=== PATIENT | female | born 1960 | race African-American/Black ===

== ENCOUNTER → 2019-06-16 | Outpatient (CLI) | payer OTHER ==
[2014-10-18 23:12] VITALS: BP 148/92
[~2019-06-16] MED LIST: REGADENOSON 0.4 MG/5 ML DISP.SYRIN. IV ONE
--- NOTE | 2019-06-18 12:14 | PCVCIMAG ---
APPROVED REPORT Imaging Protocol: Rest Tc-99m/Stress Tc-99m 1 day Study performed: 06/16/2019 09:19:51 Patient Location: Out-Patient Stress Nurse: Cristina Estrella RN, Elsie Mendoza RN GA Tech:Marina Fatou [facility] [place] Ht: 5 ft 2 in Wt: 170 lbs BSA: 1.78 m2 HR: 61 bpm BP: 110/68 mmHg BMI: 31.09 Rhythm: Sinus Bradycardia Medical History Medical History: HTN Medications: Amlodipine, Metoprolol, HCTZ Allergies: None relevant to this exam Cardiac Risk Factors: Age Pretest Chest Pain Characteristics: No chest pain Meds Held (24 hrs): Metoprolol Resting Data Rest SPECT myocardial perfusion imaging was performed in supine position 45 minutes following the intravenous injection of 10.2 mCi of Tc-99m Sestamibi. Time of rest injection: 0845 Date: 06/16/2019 Administration Route: IV Administration Site: Right AC Pharmacologic Stress Pharmacologic stress test was performed by injecting Regadenoson 0.4 mg IV push over 10-15 seconds immediately followed by the intravenous injection of 33.7 mCi of Tc-99m Sestamibi. Time of stress injection: 1000 Date: 06/16/2019 Administration Route: IV Administration Site: Right AC Gated Stress SPECT was performed 45 minutes after stress injection. The images were gated to evaluate regional wall motion and calculate left ventricular ejection fraction. Stress Test Details Stress Test: Pharmacologic stress testing performed using 0.4 mg of regadenoson per 5 mL given IV over 10 seconds. Reason for pharmacologic stress test: physical limitation, knee issues. HRMax Heart Rate (APMHR): 163 bpm Resting HR: 61 bpmTarget HR (85% APMHR): 138 bpm Max HR Achieved: 75 bpm % of APMHR: 46 Recovery HR: 68 bpm BP Resting BP: 110/68 mmHg Max BP: 112/74 mmHg Recovery BP: 108/70 mmHg ECG Resting ECG: Sinus Bradycardia Stress ECG: Sinus Rhythm Arrhythmia: None Recovery ECG: Sinus Rhythm Clinical Reason for Termination: Completed protocol Stress Symptoms: Dyspnea Symptoms resolved with caffeine. Stress ECG Conclusion 1. Adequate response to intravenous Lexiscan 2. Inadequate heart rate for ECG diagnosis Study Data Post stress, the left ventricular ejection was 81%.. SSS: 1 SRS: 0 SDS: 1 TID = 0.74. Perfusion There is a small area of moderately reduced uptake in the apical segment of the anterior wall which is seen on the stress images as well as the resting images. This area thickens and moves normally and is most consistent with attenuation artifact. Wall Motion Normal left ventricular wall motion. Nuclear Conclusion ECG Findings: non-diagnostic Clinical Findings: negative for ischemia Nuclear Findings: negative for ischemia Exercise Capacity: not assessed Left Ventricular Function: normal 1. Low risk study based on the absence of inducible ischemia 2. Post stress left ventricular ejection fraction 81% with normal contractility <Conclusion> 1. Adequate response to intravenous Lexiscan 2. Inadequate heart rate for ECG diagnosis
== END | disposition home or self-care (01) ==
LOC: PCVCIMAG 08:42
PROVIDERS: ATTEND Internal Medicine
DX: R07.9 Chest pain, unspecified (principal); E03.9 Hypothyroidism, unspecified; Z88.8 Allergy status to other drugs, medicaments and biological substances
CPT/HCPCS: 78452; 93017; A9500; J2785